=== PATIENT | male | born 1945 | race Caucasian/White ===

== ENCOUNTER → 2018-02-17 12:09 | Outpatient (CLI) | payer MEDICARE, SELFPAY ==
[2018-02-17 14:59] LABS: Absolute Lymphocyte Count 1.72 X10^3/ul (0.83-4.51); Absolute Neutrophil Count 3.5 X10^3/uL (2.0-7.7); Basophil# 0.04 X10^3/uL; Basophil% 0.7 % (0-1); Eosinophils% 1.6 % (0-5); Hemoglobin 16.8 g/dl (13.0-16.5); Lymphocyte # 1.72 X10^3/ul (4.0); Lymphocyte % 28.3 % (19-41); Mean Corpuscular Hgb 31.6 pg (27.0-32.0); Mean Corpuscular Volume 90.2 fL (80-94); Mean Platelet Vol. 10.7 fl (6.2-12.0); Monocyte# 0.73 X10^3/uL; Neutrophil # 3.46 X10^3/uL (2.7-7.7); Neutrophil % 57.1 % (47-70); Platelet Count 201 K/mm3 (150-450); RBC Distribution Width CV 12.3 % (11.6-14.6); RBC Distribution Width SD 40.8 fl (35.1-43.9); Red Blood Count 5.32 M/mm3 (4.6-6.2); White Blood Count 6.1 K/mm3 (4.4-11.0)
[2018-02-17 15:07] LABS: POSITIVE COUNT NO; POSITIVE DIFFERENTIAL NO; POSITIVE MORPHOLOGY NO
[2018-02-17 15:26] LABS: ALB/GLOB Ratio 1.1 RATIO (0.9-2.4); AST(SGOT) 21 U/L (15-37); Alanine Aminotransfer ALT/SGPT 28 U/L (16-61); Albumin, Serum 3.9 g/dL (3.2-5.0); Alkaline Phosphatase 85 U/L (45-117); Anion Gap 7 (5-15); BUN 17 mg/dL (7-18); BUN/Creat Ratio 15.6 RATIO (10-20); Calcium,Total 8.7 mg/dL (8.5-10.1); Chloride 103 mmol/L (98-107); Creatinine, Serum 1.09 mg/dL (0.70-1.30); EST Glomerular Filtration Rate 70 mL/min (>60); Est Glom Filt Rate - Afr Amer 85 mL/min (>60); Globulin 3.5 g/dL (2.2-4.2); Glucose 125 mg/dL (74-106); Potassium 3.8 mmol/L (3.5-5.1); Protein, Total 7.4 g/dL (6.4-8.2); Sodium Level 139 mmol/L (136-145); Thyroid Stim Hormone (TSH) 2.39 uIU/mL (0.358-3.74)
[2018-02-18 08:32] LABS: Vitamin D,25 Hydroxy 56.6 ng/mL (29.95-100.01)
== END ==
PROVIDERS: Family Provider Family Medicine Geriatric Medicine; PCP Family Medicine Geriatric Medicine; Visit Provider Family Medicine Geriatric Medicine
DX: E55.9 Vitamin D deficiency, unspecified (principal); I10 Essential (primary) hypertension
CPT/HCPCS: 36415; 80053; 82306; 84443; 85025

== ENCOUNTER → 2018-08-19 13:05 | Outpatient (CLI) | payer MEDICARE, SELFPAY ==
[2018-08-19 17:15] LABS: Absolute Lymphocyte Count 1.77 X10^3/ul (0.83-4.51); Absolute Neutrophil Count 3.3 X10^3/uL (2.0-7.7); Basophil# 0.03 X10^3/uL; Basophil% 0.5 % (0-1); Eosinophil# 0.08 X10^3/uL; Eosinophils% 1.4 % (0-5); Hematocrit 47.8 % (40-54); Hemoglobin 16.6 g/dl (13.0-16.5); Lymphocyte # 1.77 X10^3/ul (4.0); Lymphocyte % 30.9 % (19-41); Mean Corp Hgb Conc 34.7 g/gl (32-36); Mean Corpuscular Hgb 31.6 pg (27.0-32.0); Mean Platelet Vol. 10.9 fl (6.2-12.0); Monocyte# 0.58 X10^3/uL; Monocyte% 10.1 % (0-10); Neutrophil # 3.26 X10^3/uL (2.7-7.7); Neutrophil % 56.9 % (47-70); Platelet Count 186 K/mm3 (150-450); RBC Distribution Width CV 12.7 % (11.6-14.6); RBC Distribution Width SD 41.7 fl (35.1-43.9); Red Blood Count 5.25 M/mm3 (4.6-6.2); White Blood Count 5.7 K/mm3 (4.4-11.0)
[2018-08-19 17:24] LABS: POSITIVE COUNT NO; POSITIVE DIFFERENTIAL NO; POSITIVE MORPHOLOGY NO
[2018-08-19 17:26] LABS: Vitamin D,25 Hydroxy 39.1 ng/mL (29.95-100.01)
[2018-08-19 17:34] LABS: ALB/GLOB Ratio 1.1 RATIO (0.9-2.4); AST(SGOT) 18 U/L (15-37); Alanine Aminotransfer ALT/SGPT 33 U/L (16-61); Albumin, Serum 3.9 g/dL (3.2-5.0); Alkaline Phosphatase 80 U/L (45-117); Anion Gap 10 (5-15); BUN 17 mg/dL (7-18); BUN/Creat Ratio 14.5 RATIO (10-20); Calcium,Total 8.7 mg/dL (8.5-10.1); Chloride 106 mmol/L (98-107); Creatinine, Serum 1.17 mg/dL (0.70-1.30); EST Glomerular Filtration Rate 65 mL/min (>60); Est Glom Filt Rate - Afr Amer 78 mL/min (>60); Globulin 3.4 g/dL (2.2-4.2); Glucose 134 mg/dL (74-106); Potassium 3.6 mmol/L (3.5-5.1); Protein, Total 7.3 g/dL (6.4-8.2); Sodium Level 144 mmol/L (136-145)
== END ==
PROVIDERS: Family Provider Family Medicine Geriatric Medicine; PCP Family Medicine Geriatric Medicine; Visit Provider Family Medicine Geriatric Medicine
DX: E55.9 Vitamin D deficiency, unspecified (principal); I10 Essential (primary) hypertension
CPT/HCPCS: 36415; 80053; 82306; 84443; 85025

== ENCOUNTER → 2019-03-09 12:19 | Outpatient (CLI) | payer MEDICARE, SELFPAY ==
[2019-03-09 12:44] LABS: Absolute Lymphocyte Count 1.56 X10^3/ul (0.83-4.51); Basophil# 0.02 X10^3/uL; Basophil% 0.2 % (0-1); Eosinophil# 0.08 X10^3/uL; Lymphocyte # 1.56 X10^3/ul (4.0); Lymphocyte % 18.6 % (19-41); Mean Corpuscular Hgb 31.6 pg (27.0-32.0); Mean Corpuscular Volume 92.7 fL (80-94); Mean Platelet Vol. 10.6 fl (6.2-12.0); Monocyte# 0.76 X10^3/uL; Monocyte% 9.1 % (0-10); Neutrophil # 5.95 X10^3/uL (2.7-7.7); Platelet Count 187 K/mm3 (150-450); RBC Distribution Width CV 13.2 % (11.6-14.6); RBC Distribution Width SD 44.4 fl (35.1-43.9); Red Blood Count 5.07 M/mm3 (4.6-6.2); White Blood Count 8.4 K/mm3 (4.4-11.0)
[2019-03-09 12:52] LABS: POSITIVE COUNT NO; POSITIVE DIFFERENTIAL NO; POSITIVE MORPHOLOGY NO
[2019-03-09 12:59] LABS: Vitamin D,25 Hydroxy 25.4 ng/mL (29.95-100.01)
[2019-03-09 13:06] LABS: ALB/GLOB Ratio 1.2 RATIO (0.9-2.4); AST(SGOT) 17 U/L (15-37); Alanine Aminotransfer ALT/SGPT 22 U/L (16-61); Albumin, Serum 3.9 g/dL (3.2-5.0); Alkaline Phosphatase 72 U/L (45-117); Anion Gap 6 (5-15); BUN 13 mg/dL (7-18); BUN/Creat Ratio 11.9 RATIO (10-20); Calcium,Total 8.7 mg/dL (8.5-10.1); Chloride 104 mmol/L (98-107); Creatinine, Serum 1.09 mg/dL (0.70-1.30); EST Glomerular Filtration Rate 70 mL/min (>60); Est Glom Filt Rate - Afr Amer 85 mL/min (>60); Globulin 3.2 g/dL (2.2-4.2); Glucose 121 mg/dL (74-106); Potassium 3.6 mmol/L (3.5-5.1); Protein, Total 7.1 g/dL (6.4-8.2); Sodium Level 142 mmol/L (136-145)
== END ==
PROVIDERS: Family Provider Family Medicine Geriatric Medicine; PCP Family Medicine Geriatric Medicine; Visit Provider Family Medicine Geriatric Medicine
DX: E55.9 Vitamin D deficiency, unspecified (principal); I10 Essential (primary) hypertension
CPT/HCPCS: 36415; 80053; 82306; 84443; 85025

== ENCOUNTER → 2020-07-11 09:52 | Outpatient (CLI) | payer MEDICARE, SELFPAY ==
[2020-07-11 09:50] VITALS: BMI 27.3
--- NOTE | 2020-07-11 09:53 | RAD_ITS ---
STUDY: X-RAY - LUMBAR SPINE REASON FOR EXAM: Male, 74 years old. RECENT FALL, LBP TECHNIQUE: 5 view(s) of the lumbar spine were obtained. COMPARISON: None FINDINGS: Normal lumbar lordosis. There is no substantial scoliosis. There is a normal alignment of the vertebrae. There is multilevel endplate spondylosis of the lumbar vertebrae. Normal disc space heights. Facet joint osteoarthritis. There is atherosclerotic calcification of the abdominal aorta without a demonstrated aneurysm. Large amount of fecal material is seen in the colon. RAD/L/S Spine Min 4 Views IMPRESSION: Degenerative changes of the spine, as detailed above. Electronically Signed: David Higginbotham, at 10:19 EDT , Service support ,
== END ==
LOC: HPRAD 09:53
PROVIDERS: PCP Family Medicine Geriatric Medicine; Referring Provider Physician Assistant Surgical; Visit Provider Physician Assistant Surgical
DX: S39.012A Strain of muscle, fascia and tendon of lower back, initial encounter (principal)
CPT/HCPCS: 72110

== ENCOUNTER 2020-08-10 08:27 | Day surgery (SDC) | payer MEDICARE, SELFPAY ==
[2020-07-17 08:41] VITALS: BMI 27.3
--- NOTE | 2020-07-19 01:20 | HP_ITS ---
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 Is patient in pain?: Yes ([facility]) Allergies No Known Allergies Allergy (Verified 07/17/20 08:41) Medications Amlodipine/Valsartan [Exforge 5-320 MG Tablet] 1 tab PO DAILY 11/24/13 [History Confirmed 07/17/20] Aspirin [Aspirin, Baby] 81 mg PO DAILY@0800 11/24/13 [History Confirmed 07/17/20] Esomeprazole Mag Trihydrate [Nexium] 20 mg PO DAILY 11/24/13 [History Confirmed 07/17/20] Gabapentin [Neurontin] 300 mg PO BIDCM 11/24/13 [History Confirmed 07/17/20] [place]-3 Acid Ethyl Esters [Lovaza] 1 gm PO BID 11/24/13 [History Confirmed 07/17/20] buspirone 10 mg tablet mg PO 07/11/20 [History Confirmed 07/17/20] ergocalciferol (vitamin D2) 1,250 mcg (50,000 unit) capsule PO 07/11/20 [History Confirmed 07/17/20] losartan 100 mg tablet PO 07/11/20 [History Confirmed 07/17/20] pravastatin 80 mg tablet PO 07/11/20 [History Confirmed 07/17/20] PFSH Medical History Hypertension (Chronic) sudden weight loss (Acute) Hay fever (Acute) History of stroke (Acute) Difficulty balancing (Acute) Back pain (Acute) Dementia (Acute) Deaf (Acute) Bilateral inguinal hernia (Acute) Low back strain (Acute) Fatigue (Acute) Surgical History History of appendectomy (Acute) Social History (Updated 07/19/20 @ 13:[address] Franko Beatty MD) Smoking Status: Never smoker HPI HPI Surgical H&P: Yes HPI: MAREN DOBBINS, is a 74 M who presents to the office today for Evaluation of a hernia. Patient has been experiencing increasing pain greater on the right than on the left over the last 6 months. He cannot recall any traumas to the area. The pain is usually a 3 out of 10 but when he is coughing or doing heavy physical activity will go up to 5 and 6 out of 10. He has had no change in his bowel habits. Exam Const General: no acute distress, well developed, well hydrated Orientation: oriented to person, oriented to place, oriented to time [facility] Head: normocephalic, atraumatic Ears: external ears normal Mouth: moist mucous membranes Eyes Sclera: sclerae normal Pupils: normal by confrontation Neck Neck: no lymphadenopathy noted Neck mass: No Thyroid: thyroid normal, symmetrical Chest Chest palpation & inspection: normal inspection of the chest Resp Effort & Inspection: normal respiratory effort Auscultation: clear to auscultation bilaterally Percussion: percussion normal Cardio Rate: regular rate Rhythm: regular rhythm GI Palpation: soft, no hepatosplenomegaly, no masses, tender Rectal Exam: other Other: Patient has bilateral inguinal hernias on physical exam. Right side is greater than the left side both of them are reducible. Rectal exam deferred. Extrem General: normal to inspection, no clubbing, cyanosis or edema Assessment & Plan Problems 1. Non-recurrent bilateral inguinal hernia without obstruction or gangrene K40.20 Plan My plan is to perform a Robotic assisted laparoscopic hernia repair. The planned surgical procedure was discussed extensively with the patient. The risks, benefits, anticipated outcomes and possible complication were mentioned. The patient understands that all hernia repair surgery has a chance of recurrence and/or chronic post-operative pain. My staff has also explained the procedure in understandable terms and the patient was given the option to take printed material concerning the planned procedure. The patient had the opportunity to ask questions concerning the planned procedure. The patient freely consents to the planned procedure. Coding Level of Care Code Off vis,new,level 3 Diagnoses Non-recurrent bilateral inguinal hernia without obstruction or gangrene K40.20 ??Obstruction and gangrene presence: without obstruction or gangrene ??Recurrence: non-recurrent COVID (Procedure Consent) Procedure Criteria Procedure Criteria: Yes Elective The surgeon/proceduralist and patient have discussed in detail the risk of exposure to and/or potential harm posed by the COVID-19 virus with having a surgery/procedure at this time versus the risk of? delaying the surgery/procedure. It is not possible to know either the risk of delaying the surgery or procedure or chance of getting an infection with perfect accuracy, but a joint decision was made between the patient and the surgeon/proceduralist ?to proceed at this time with the scheduled surgery/procedure as indicated on the consent form. 07/19/20 1320 <Electronically signed by Franko soto MD> Date _ Franko Beatty MD I have re-examined the patient. There are no clinical changes since date of exam.
[2020-08-04 09:45] LABS: Hematocrit 46.6 % (40-54); Mean Corp Hgb Conc 34.3 g/dL (32-36); Mean Corpuscular Hgb 32.9 pg (27.0-32.0); Mean Corpuscular Volume 95.7 fL (80-94); Mean Platelet Vol. 10.5 fl (6.2-12.0); Platelet Count 191 K/mm3 (150-450); RBC Distribution Width CV 12.2 % (11.6-14.6); RBC Distribution Width SD 42.8 fl (35.1-43.9); Red Blood Count 4.87 M/mm3 (4.6-6.2); White Blood Count 5.7 K/mm3 (4.4-11.0)
[2020-08-04 10:25] LABS: Anion Gap 7 (5-15); BUN 24 mg/dL (7-18); BUN/Creat Ratio 20.3 RATIO (10-20); Calcium,Total 9.2 mg/dL (8.5-10.1); Chloride 104 mmol/L (98-107); Creatinine, Serum 1.18 mg/dL (0.70-1.30); EST Glomerular Filtration Rate 64 mL/min (>60); Est Glom Filt Rate - Afr Amer 77 mL/min (>60); Glucose 81 mg/dL (74-106); Potassium 3.8 mmol/L (3.5-5.1); Sodium Level 143 mmol/L (136-145)
[2020-08-10] VITALS (8 sets, daily range): BP systolic 144–151; BP diastolic 65–81; PULSE 52–71; RESP 14–18; TEMP 36.3–37; O2SAT 97–100; BMI 21.7
[2020-08-10] MEDS: Lactated Ringers 1,000 ML 100 ML IV ×2 (09:07→14:05)
[2020-08-10] MEDS: Cefazolin 2 GM in 0.9% Normal Saline 100 ML IV (10:36)
[2020-08-10] MEDS: Bupivacaine Mpf 0.5% 30 ML VIAL (13:00)
--- NOTE | 2020-08-10 13:22 | PCM.OPRPT ---
Problem List (1) Bilateral inguinal hernia Status: Acute Qualifiers: Obstruction and gangrene presence: without obstruction or gangrene Recurrence: non-recurrent Qualified Code(s): K40.20 - Bilateral inguinal hernia, without obstruction or gangrene, not specified as recurrent Report of Operation Date of Procedure: 08/10/20 Pre-Operative Diagnosis: Bilateral inguinal hernias Post-Operative Diagnosis: Same plus prostate irritation secondary to Cha catheter placement Surgery/Procedure Performed:: Robotically assisted laparoscopic bilateral inguinal hernia repair Type of Anesthesia:: General Anesthesiologist: Ernie Grayson Estimated Blood Loss (mL): < 25 cc Fluids Replaced: 1400 cc LR Description of Procedure: Patient was brought into the operating room. Placed in the supine position. Under excellent general trach elevation Cha catheter was placed by the nurses abdomen was sterilely prepped and draped in usual fashion. Local was injected supraumbilically dissection was carried down to the fascia the fascia grasped with a Katerina varies needle was placed inside the abdomen the abdomen was insufflated to 15 torr. #8 trocar was placed. This trocar was then flank by 2 other #8 trochars. There was no injury to underlying structures. Patient was placed in the headdown position. The robot was brought into position and docked with the trochars without difficulty. Pro-grasp was placed in the left hand scissors on the right hand. I started on the right side scored the peritoneum dissected down to Brant's ligament and dissected further laterally. Patient had a rather large defect on the side and as I started to dissect free the vessel structures and then come down and try to identify the vas deferens his hernia sac went all the way down to his testicle I brought it is much of it back and is possible but I thought that I was going to injure the blood supply so I subsequently transected the peritoneum and left part of the peritoneum go back and retract into the inguinal canal. Thought this was the best thing to do so I did not injure the blood supply to the testicle. I then went to the left side in similar fashion scored the peritoneum dissecting down to the pubic tubercle and Brant's ligament patient had a significant amount of his colon located within this hernia which I detached with the use of electrocautery without injury to the colon. I then dissected further laterally bringing the hernia sac off of the cord and vessel structures this side came off much easier. I dissected further laterally. I then placed 2 pro-electroencephalographic technologist mesh into the wound I unfolded them placing the right side first and then subsequently the left side both of these mesh laid completely flat. I then used 30V lock starting on the right side closing this right defect then going to the left side. There were 2 small defects located within the mesentery these were also subsequently closed with 3 OV lock. I had covered the mesh completely. It was during this part that I noticed that the bladder remained very full I asked if we had gotten any urine from the case and we had not. I subsequently have the balloon deflated no blood came back into the catheter. Skin incisions were closed with subcuticular stitches of 4-0 Monocryl. Steri-Strips were applied. I then personally remove the catheter attempted to place a 16 Tristanian catheter coud? tip but was unsuccessful. Blood did come back at the tip and I subsequently called Dr. Slater who came in and performed a flexible cystoscopy and placement of a Cha catheter. There was some bloody fluid in the leg bag. Dr. Wasserman said that the prostate looked slightly bruised and roughed up but there were no false channels and he anticipates this to heal completely. He wants me to send him home on some Flomax. Patient was sent to the recovery room in satisfactory condition I subsequently went spoke to the and explained the injury to the prostate and that he would be going home on a leg bag. I instructed her if there are any questions at all I was education sales consultant all weekend long and she could call me. I will see the patient back either Friday or Friday whichever works best for him and remove the catheter in the office. When in the PACU his urine did start to clear up. And I explained to him that his prostate was irritated with the Cha catheter and he needed to keep this catheter in until Friday. - Admit VTE Documentation VTE Present on Admission: No VTE Mechan Device Prophylaxis: SCD's VTE Pharm Prophylaxis ordered?: No Reason prophylaxis not ordered:: Treatment Not Indicated [id number]: [id number] Lap ing hernia repair init - Modifier 50
--- NOTE | 2020-08-10 13:30 | OP.PCM_ITS ---
Report of Operation Date of Procedure: 08/10/20 Pre-Operative Diagnosis: Unable to place Oden catheter patient undergoing surgery Post-Operative Diagnosis: Same Surgery/Procedure Performed:: Cystoscopy complicated Oden catheter placement. Description of Surgical Findings:: 74-year-old male was undergoing procedure he underwent a hernia repair. I was called down to place a Oden catheter at the end of the case he had a distended bladder the nursing staff attempted to place a catheter but were unable to so was called down to see the patient. Immediately came down as the patient was under anesthesia under the care of the general surgeon. He had completed his procedure the patient was supine on the table the penis testicles were prepped and draped in usual sterile fashion went in the bladder with a flexible cystoscope there was some blood along the course of the urethra went to the sphincter no clear false channel or abnormality was seen he did have an enlarged prostate was able to get through what appeared to be a high bladder neck and into a distended bladder put a wire through the catheter and then over a wire was able to place a 18 [place] tip catheter and then drained the bladder with urine with some blood in it. At this point appears to have some slight prosthetic trauma from attempted Oden placement and will think any thing serious, he can have the catheter removed in a few days probably would put him on Flomax just to help with swelling there is any issues I can see him postop. We then drained the bladder and patient is taken back to PACU in good condition. Type of Anesthesia:: General Drains: oden - Admit VTE Documentation VTE Present on Admission: No VTE Mechan Device Prophylaxis: SCD's
--- NOTE | 2020-08-10 13:53 | PCM.DC.HER ---
Discharge Diet: Light diet - advance as tolerated Discharge Activity: Return to Normal Activity, May Drive - when you are no longer taking narcotic pain medications., May Shower - with the bandage in place 1-2 days after surgery. Lifting Restrictions: 20 pounds for 8 weeks. Additional Activity Instructions:: Climbing stairs is fine, walking is encouraged. Sitting in bed may be uncomfortable. Sitting up using your lateral muscles (sitting up sideways) is usually more comfortable. Do not drive, work heavy equipment of sign legal documents for 24 hours. If your hernia repair was an ingunial repair, you may have scrotal swelling, an ice pack and/or athletic support can provide more comfort. Pain medications may cause nausea, you should typically eat light foods as you take your pain medications. Pain medications may also cause constipation. If you have difficulty with this, discuss with your doctor. Call your doctor if your incision/area has: Continuous Slow Oozing, Sudden Increased Bleeding, Increased Pain/ Swelling, Increased Redness, Foul Smelling Discharge Call your doctor if you observe: Fever of 101 or Higher Suture Line Care: Avoid Pulling/Pushing, Avoid Pinching/Bending Additional Dressing/Incision Instructions:: Leave the operative bandage on for 2-3 days. When you remove the bandage, leave the steri-strips on place until your follow up appointment or they fall off. Allergies/Adverse Reactions: Allergies No Known Allergies Allergy (Verified 08/01/20 14:21) Medications to take at Discharge Amlodipine/Valsartan [Exforge 5-320 MG Tablet] 1 tab PO QHS 11/24/13 Aspirin [Aspirin, Baby] 81 mg PO DAILY@0800 11/24/13 Esomeprazole Mag Trihydrate [Nexium] 20 mg PO DAILY 11/24/13 Gabapentin [Neurontin] 300 mg PO TID 11/24/13 [place]-3 Acid Ethyl Esters [Lovaza] 1 gm PO BID 11/24/13 buspirone 10 mg tablet 10 mg PO TID 07/11/20 ergocalciferol (vitamin D2) 1,250 mcg (50,000 unit) capsule 1,250 mcg PO DAILY 07/11/20 losartan 100 mg tablet 100 mg PO QHS 07/11/20 pravastatin 80 mg tablet 80 mg PO QHS 07/11/20 Oxycodone HCl/Acetaminophen [Percocet 5/325] 1 - 2 tab PO Q4H PRN PRN 6 Days #30 tab 08/10/20 Tamsulosin HCl [Flomax] 0.4 mg PO DAILY 7 Days #7 cap 08/10/20 The following prescriptions were given: Tamsulosin HCl [Flomax] 0.4 mg PO DAILY 7 Days #7 cap Transmission Status: Received by [facility] Oxycodone HCl/Acetaminophen [Percocet 5/325] 1 - 2 tab PO Q4H PRN PRN 6 Days #30 tab PRN Reason: Pain Transmission Status: Received by [facility] Orders to be completed after discharge: 12 Lead EKG [[facility]] Time Frame: 08/04/20, Facility: [facility], Location: Cardiovascular Services Primary Care Physician: Angel Kahn Chi, MD [Primary Care Provider] - Test Results: Test results from this visit will be discussed in further detail at your follow-up appointment, if applicable. Please Follow Up With: Franko Beatty MD - [phone] When: Plan to have a follow up appointment Friday or Friday.
--- NOTE | 2020-08-10 13:55 | PCM.DC.URO ---
Discharge Diet: Light diet - advance as tolerated Discharge Activity: Return to Normal Activity, May Drive - when you are no longer taking narcotic pain medications., May Shower - with the bandage in place 1-2 days after surgery. Additional Activity Instructions:: Climbing stairs is fine, walking is encouraged. Sitting in bed may be uncomfortable. Sitting up using your lateral muscles (sitting up sideways) is usually more comfortable. Do not drive, work heavy equipment of sign legal documents for 24 hours. If your hernia repair was an ingunial repair, you may have scrotal swelling, an ice pack and/or athletic support can provide more comfort. Pain medications may cause nausea, you should typically eat light foods as you take your pain medications. Pain medications may also cause constipation. If you have difficulty with this, discuss with your doctor. Call your doctor if your incision/area has: Continuous Slow Oozing, Sudden Increased Bleeding, Increased Pain/ Swelling, Increased Redness, Foul Smelling Discharge Call your doctor if you observe: Fever of 101 or Higher Suture Line Care: Avoid Pulling/Pushing, Avoid Pinching/Bending Catheter: Cha to leg bag - Please also give a large bag. Give instructions on how to change the two. Additional Dressing/Incision Instructions:: Leave the operative bandage on for 2-3 days. When you remove the bandage, leave the steri-strips on place until your follow up appointment or they fall off. Allergies/Adverse Reactions: Allergies No Known Allergies Allergy (Verified 08/01/20 14:21) Medications to take at Discharge Amlodipine/Valsartan [Exforge 5-320 MG Tablet] 1 tab PO QHS 11/24/13 Aspirin [Aspirin, Baby] 81 mg PO DAILY@0800 11/24/13 Esomeprazole Mag Trihydrate [Nexium] 20 mg PO DAILY 11/24/13 Gabapentin [Neurontin] 300 mg PO TID 11/24/13 [place]-3 Acid Ethyl Esters [Lovaza] 1 gm PO BID 11/24/13 buspirone 10 mg tablet 10 mg PO TID 07/11/20 ergocalciferol (vitamin D2) 1,250 mcg (50,000 unit) capsule 1,250 mcg PO DAILY 07/11/20 losartan 100 mg tablet 100 mg PO QHS 07/11/20 pravastatin 80 mg tablet 80 mg PO QHS 07/11/20 Oxycodone HCl/Acetaminophen [Percocet 5/325] 1 - 2 tab PO Q4H PRN PRN 6 Days #30 tab 08/10/20 Tamsulosin HCl [Flomax] 0.4 mg PO DAILY 7 Days #7 cap 08/10/20 The following prescriptions were given: Tamsulosin HCl [Flomax] 0.4 mg PO DAILY 7 Days #7 cap Transmission Status: Received by [facility] Oxycodone HCl/Acetaminophen [Percocet 5/325] 1 - 2 tab PO Q4H PRN PRN 6 Days #30 tab PRN Reason: Pain Transmission Status: Received by [facility] Orders to be completed after discharge: 12 Lead EKG [[facility]S] Time Frame: 08/04/20, Facility: [facility], Location: Cardiovascular Services Primary Care Physician: Angel Kahn Chi, MD [Primary Care Provider] - Test Results: Test results from this visit will be discussed in further detail at your follow-up appointment, if applicable.
== END 2020-08-10 15:50 | disposition home or self-care (01) ==
LOC: SDC 08:28 → AC 08:28
PROVIDERS: Anesthesiology; Urology; PCP Family Medicine Geriatric Medicine; Referring Provider Surgery; Visit Provider Surgery
PROC: (CPT 49650; principal; 2020-08-10 10:10)
PROC: 0TJB8ZZ Inspection of Bladder, Via Natural or Artificial Opening Endoscopic (ICD-10-PCS; CPT 52000; 2020-08-10 10:10)
DX: K40.20 Bilateral inguinal hernia, without obstruction or gangrene, not specified as recurrent (principal); E78.00 Pure hypercholesterolemia, unspecified; K21.9 Gastro-esophageal reflux disease without esophagitis; F41.9 Anxiety disorder, unspecified; F32.9 Major depressive disorder, single episode, unspecified; Z11.59 Encounter for screening for other viral diseases; Z79.899 Other long term (current) drug therapy; Z79.82 Long term (current) use of aspirin; I10 Essential (primary) hypertension; G47.30 Sleep apnea, unspecified
CPT/HCPCS: 00840; 49650; 51703; S2900; 36415; 80048; 85027; 87635; C9803; J7120; C1769; J2405; U0003

== ENCOUNTER → 2020-09-05 11:06 | Outpatient (CLI) | payer MEDICARE, SELFPAY ==
[2020-08-10 08:55] VITALS: BMI 21.7
[2020-09-05 12:32] LABS: Absolute Lymphocyte Count 1.07 X10^3/uL (0.83-4.51); Absolute Neutrophil Count 3.6 X10^3/uL (2.0-7.7); Basophil# 0.07 X10^3/uL; Basophil% 1.2 % (0-1); Eosinophil# 0.44 X10^3/uL; Eosinophils% 7.7 % (0-5); Hematocrit 42.7 % (40-54); Hemoglobin 14.1 g/dL (13.0-16.5); Lymphocyte # 1.07 X10^3/ul (4.0); Lymphocyte % 18.7 % (19-41); Mean Corpuscular Hgb 31.5 pg (27.0-32.0); Mean Corpuscular Volume 95.5 fL (80-94); Mean Platelet Vol. 10.4 fl (6.2-12.0); Monocyte# 0.56 X10^3/uL; Monocyte% 9.8 % (0-10); NRBC Flagged by Analyzer 0 % (0-5); Neutrophil # 3.57 X10^3/uL (2.7-7.7); Neutrophil % 62.3 % (47-70); Platelet Count 210 K/mm3 (150-450); RBC Distribution Width SD 42.3 fl (35.1-43.9); Red Blood Count 4.47 M/mm3 (4.6-6.2); White Blood Count 5.7 K/mm3 (4.4-11.0)
[2020-09-05 13:00] LABS: AST(SGOT) 18 U/L (15-37); Alanine Aminotransfer ALT/SGPT 24 U/L (16-61); Albumin, Serum 3.5 g/dL (3.2-5.0); Alkaline Phosphatase 81 U/L (45-117); Anion Gap 4 (5-15); BUN 14 mg/dL (7-18); Calcium,Total 9.1 mg/dL (8.5-10.1); Chloride 106 mmol/L (98-107); Creatinine, Serum 0.93 mg/dL (0.70-1.30); EST Glomerular Filtration Rate 84 mL/min (>60); Est Glom Filt Rate - Afr Amer 101 mL/min (>60); Globulin 3.6 g/dL (2.2-4.2); Glucose 95 mg/dL (74-106); Potassium 3.4 mmol/L (3.5-5.1); Protein, Total 7.1 g/dL (6.4-8.2); Sodium Level 142 mmol/L (136-145); Thyroid Stim Hormone (TSH) 1.34 uIU/mL (0.358-3.74); Vitamin D,25 Hydroxy 41.1 ng/mL
== END ==
PROVIDERS: PCP Family Medicine Geriatric Medicine; Visit Provider Family Medicine Geriatric Medicine
DX: E55.9 Vitamin D deficiency, unspecified (principal); I10 Essential (primary) hypertension
CPT/HCPCS: 36415; 80053; 82306; 84443; 85025

== ENCOUNTER → 2021-03-16 11:08 | Outpatient (CLI) | payer MEDICARE, SELFPAY ==
[2020-08-10 08:55] VITALS: BMI 21.7
[2021-03-16 12:17] LABS: Absolute Lymphocyte Count 1.34 X10^3/uL (0.83-4.51); Absolute Neutrophil Count 2.7 X10^3/uL (2.0-7.7); Basophil# 0.06 X10^3/uL; Basophil% 1.3 % (0-1); Eosinophils% 2.1 % (0-5); Hematocrit 42.9 % (40-54); Hemoglobin 14.3 g/dL (13.0-16.5); Lymphocyte # 1.34 X10^3/ul (0.83-4.51); Lymphocyte % 28.5 % (19-41); Mean Corp Hgb Conc 33.3 g/dL (32-36); Mean Corpuscular Volume 92.9 fL (80-94); Mean Platelet Vol. 10.6 fl (6.2-12.0); Monocyte# 0.48 X10^3/uL; Monocyte% 10.2 % (0-10); NRBC Flagged by Analyzer 0 % (0-5); Neutrophil # 2.72 X10^3/uL (2.7-7.7); Neutrophil % 57.7 % (47-70); Platelet Count 200 K/mm3 (150-450); RBC Distribution Width CV 11.9 % (11.6-14.6); Red Blood Count 4.62 M/mm3 (4.6-6.2); White Blood Count 4.7 K/mm3 (4.4-11.0)
[2021-03-16 12:31] LABS: Vitamin D,25 Hydroxy 43.1 ng/mL
[2021-03-16 12:45] LABS: ALB/GLOB Ratio 1.1 RATIO (0.9-2.4); AST(SGOT) 16 U/L (15-37); Alanine Aminotransfer ALT/SGPT 19 U/L (16-61); Albumin, Serum 3.8 g/dL (3.2-5.0); Alkaline Phosphatase 75 U/L (45-117); Anion Gap 3 (5-15); BUN 21 mg/dL (7-18); BUN/Creat Ratio 19.8 RATIO (10-20); Calcium,Total 8.8 mg/dL (8.5-10.1); Chloride 106 mmol/L (98-107); Creatinine, Serum 1.06 mg/dL (0.70-1.30); EST Glomerular Filtration Rate 72 mL/min (>60); Est Glom Filt Rate - Afr Amer 87 mL/min (>60); Globulin 3.5 g/dL (2.2-4.2); Glucose 100 mg/dL (74-106); Potassium 3.5 mmol/L (3.5-5.1); Protein, Total 7.3 g/dL (6.4-8.2); Sodium Level 141 mmol/L (136-145); Thyroid Stim Hormone (TSH) 1.37 uIU/mL (0.358-3.74)
== END ==
PROVIDERS: PCP Family Medicine Geriatric Medicine; Visit Provider Family Medicine Geriatric Medicine
DX: E55.9 Vitamin D deficiency, unspecified (principal); E87.6 Hypokalemia; I10 Essential (primary) hypertension
CPT/HCPCS: 36415; 80053; 82306; 84443; 85025

== ENCOUNTER → 2021-09-18 15:57 | Outpatient (CLI) | payer MEDICARE, SELFPAY ==
[2021-09-18 16:38] LABS: Absolute Lymphocyte Count 1.02 X10^3/uL (0.83-4.51); Absolute Neutrophil Count 4.7 X10^3/uL (2.0-7.7); Basophil# 0.04 X10^3/uL; Basophil% 0.6 % (0-1); Eosinophil# 0.05 X10^3/uL; Eosinophils% 0.8 % (0-5); Hematocrit 43.3 % (40-54); Hemoglobin 14.6 g/dL (13.0-16.5); Lymphocyte # 1.02 X10^3/ul (0.83-4.51); Lymphocyte % 15.5 % (19-41); Mean Corp Hgb Conc 33.7 g/dL (32-36); Mean Corpuscular Hgb 31.8 pg (27.0-32.0); Mean Corpuscular Volume 94.3 fL (80-94); Mean Platelet Vol. 10.5 fl (6.2-12.0); Monocyte% 10.7 % (0-10); NRBC Flagged by Analyzer 0 % (0-5); Neutrophil # 4.72 X10^3/uL (2.7-7.7); Neutrophil % 71.9 % (47-70); Platelet Count 199 K/mm3 (150-450); RBC Distribution Width CV 12.1 % (11.6-14.6); RBC Distribution Width SD 42.3 fl (35.1-43.9); Red Blood Count 4.59 M/mm3 (4.6-6.2); White Blood Count 6.6 K/mm3 (4.4-11.0)
[2021-09-18 17:09] LABS: ALB/GLOB Ratio 1.1 RATIO (0.9-2.4); AST(SGOT) 14 U/L (15-37); Alanine Aminotransfer ALT/SGPT 19 U/L (16-61); Albumin, Serum 3.8 g/dL (3.2-5.0); Alkaline Phosphatase 67 U/L (45-117); Anion Gap 4 (5-15); BUN 22 mg/dL (7-18); BUN/Creat Ratio 18.3 RATIO (10-20); Calcium,Total 8.7 mg/dL (8.5-10.1); Chloride 104 mmol/L (98-107); EST Glomerular Filtration Rate 62 mL/min (>60); Est Glom Filt Rate - Afr Amer 75 mL/min (>60); Globulin 3.5 g/dL (2.2-4.2); Glucose 88 mg/dL (74-106); Potassium 3.9 mmol/L (3.5-5.1); Protein, Total 7.3 g/dL (6.4-8.2); Sodium Level 140 mmol/L (136-145)
== END ==
PROVIDERS: PCP Family Medicine Geriatric Medicine; Visit Provider Family Medicine Geriatric Medicine
DX: E55.9 Vitamin D deficiency, unspecified (principal); I10 Essential (primary) hypertension
CPT/HCPCS: 36415; 80053; 82306; 84443; 85025

== ENCOUNTER → 2022-09-23 | Outpatient (CLI) | payer MEDICARE, SELFPAY ==
[2022-09-23 17:57] LABS: Absolute Lymphocyte Count 1.32 X10^3/uL (0.83-4.51); Absolute Neutrophil Count 3.7 X10^3/uL (2.0-7.7); Basophil# 0.05 X10^3/uL; Basophil% 0.9 % (0-1); Eosinophils% 1.8 % (0-5); Hematocrit 45.1 % (40-54); Hemoglobin 15.6 g/dL (13.0-16.5); Lymphocyte # 1.32 X10^3/ul (0.83-4.51); Lymphocyte % 23.2 % (19-41); Mean Corp Hgb Conc 34.6 g/dL (32-36); Mean Corpuscular Volume 92.4 fL (80-94); Mean Platelet Vol. 10.8 fl (6.2-12.0); Monocyte# 0.54 X10^3/uL; Monocyte% 9.5 % (0-10); NRBC Flagged by Analyzer 0 % (0-5); Neutrophil # 3.67 X10^3/uL (2.7-7.7); Neutrophil % 64.2 % (47-70); Platelet Count 199 K/mm3 (150-450); RBC Distribution Width CV 11.9 % (11.6-14.6); RBC Distribution Width SD 40.5 fl (35.1-43.9); Red Blood Count 4.88 M/mm3 (4.6-6.2); White Blood Count 5.7 K/mm3 (4.4-11.0)
[2022-09-23 18:04] LABS: Vitamin D,25 Hydroxy 46.1 ng/mL
[2022-09-23 18:18] LABS: ALB/GLOB Ratio 1.2 RATIO (0.9-2.4); AST(SGOT) 16 U/L (15-37); Alanine Aminotransfer ALT/SGPT 23 U/L (16-61); Alkaline Phosphatase 77 U/L (45-117); Anion Gap 4 (5-15); BUN 19 mg/dL (7-18); BUN/Creat Ratio 16.8 RATIO (10-20); Calcium,Total 8.8 mg/dL (8.5-10.1); Chloride 107 mmol/L (98-107); Creatinine, Serum 1.13 mg/dL (0.70-1.30); EST Glomerular Filtration Rate 67 mL/min (>60); Est Glom Filt Rate - Afr Amer 81 mL/min (>60); Globulin 3.3 g/dL (2.2-4.2); Glucose 96 mg/dL (74-106); Potassium 3.4 mmol/L (3.5-5.1); Protein, Total 7.3 g/dL (6.4-8.2); Sodium Level 141 mmol/L (136-145); Thyroid Stim Hormone (TSH) 2.55 uIU/mL (0.358-3.74)
== END | disposition home or self-care (01) ==
LOC: POLAB3 15:38
PROVIDERS: PCP Family Medicine Geriatric Medicine; Visit Provider Family Medicine Geriatric Medicine
DX: E55.9 Vitamin D deficiency, unspecified (principal); I10 Essential (primary) hypertension
CPT/HCPCS: 36415; 80053; 82306; 84443; 85025

== ENCOUNTER → 2023-09-24 | Outpatient (CLI) | payer MEDICARE, SELFPAY ==
[2023-09-24 16:18] LABS: Absolute Lymphocyte Count 0.83 X10^3/uL (0.83-4.51); Absolute Neutrophil Count 4.3 X10^3/uL (2.0-7.7); Basophil# 0.02 X10^3/uL; Basophil% 0.4 % (0-1); Eosinophil# 0.04 X10^3/uL; Eosinophils% 0.7 % (0-5); Hematocrit 42.6 % (40-54); Hemoglobin 14.5 g/dL (13.0-16.5); Lymphocyte # 0.83 X10^3/ul (0.83-4.51); Lymphocyte % 15.1 % (19-41); Mean Corpuscular Hgb 31.9 pg (27.0-32.0); Mean Corpuscular Volume 93.8 fL (80-94); Mean Platelet Vol. 10.5 fl (6.2-12.0); Monocyte# 0.33 X10^3/uL; NRBC Flagged by Analyzer 0 % (0-5); Neutrophil # 4.25 X10^3/uL (2.7-7.7); Neutrophil % 77.4 % (47-70); Platelet Count 203 K/mm3 (150-450); RBC Distribution Width CV 12.2 % (11.6-14.6); RBC Distribution Width SD 42.6 fl (35.1-43.9); Red Blood Count 4.54 M/mm3 (4.6-6.2); White Blood Count 5.5 K/mm3 (4.4-11.0)
[2023-09-24 16:36] LABS: Vitamin D,25 Hydroxy 60.6 ng/mL
[2023-09-24 16:46] LABS: AST(SGOT) 11 U/L (15-37); Alanine Aminotransfer ALT/SGPT 20 U/L (16-61); Albumin, Serum 3.6 g/dL (3.2-5.0); Alkaline Phosphatase 62 U/L (45-117); Anion Gap 5 (5-15); BUN 14 mg/dL (7-18); Calcium,Total 8.7 mg/dL (8.5-10.1); Chloride 105 mmol/L (98-107); EST Glomerular Filtration Rate 77 mL/min (>60); Est Glom Filt Rate - Afr Amer 93 mL/min (>60); Globulin 3.5 g/dL (2.2-4.2); Glucose 97 mg/dL (74-106); Potassium 3.7 mmol/L (3.5-5.1); Protein, Total 7.1 g/dL (6.4-8.2); Sodium Level 139 mmol/L (136-145); Thyroid Stim Hormone (TSH) 0.87 uIU/mL (0.358-3.74)
== END | disposition home or self-care (01) ==
LOC: POLAB3 15:08
PROVIDERS: PCP Family Medicine Geriatric Medicine; Visit Provider Family Medicine Geriatric Medicine
DX: I10 Essential (primary) hypertension (principal); E55.9 Vitamin D deficiency, unspecified
CPT/HCPCS: 36415; 80053; 82306; 84443; 85025

== ENCOUNTER → 2024-10-12 | Outpatient (CLI) | payer MEDICARE, SELFPAY ==
[2024-10-12 12:59] LABS: Absolute Lymphocyte Count 1.11 X10^3/uL (0.83-4.51); Absolute Neutrophil Count 3.9 X10^3/uL (2.0-7.7); Basophil# 0.06 X10^3/uL; Eosinophil# 0.06 X10^3/uL; Hematocrit 46.6 % (40-54); Hemoglobin 15.7 g/dL (13.0-16.5); Lymphocyte # 1.11 X10^3/ul (0.83-4.51); Lymphocyte % 19.3 % (19-41); Mean Corp Hgb Conc 33.7 g/dL (32-36); Mean Corpuscular Hgb 31.5 pg (27.0-32.0); Mean Corpuscular Volume 93.4 fL (80-94); Mean Platelet Vol. 10.5 fl (6.2-12.0); Monocyte# 0.59 X10^3/uL; Monocyte% 10.2 % (0-10); NRBC Flagged by Analyzer 0 % (0-5); Neutrophil # 3.92 X10^3/uL (2.7-7.7); Neutrophil % 68.2 % (47-70); Platelet Count 210 K/mm3 (150-450); RBC Distribution Width SD 41.3 fl (35.1-43.9); Red Blood Count 4.99 M/mm3 (4.6-6.2); White Blood Count 5.8 K/mm3 (4.4-11.0)
[2024-10-12 13:26] LABS: Vitamin D,25 Hydroxy 47.2 ng/mL
[2024-10-12 13:40] LABS: ALB/GLOB Ratio 1.2 RATIO (0.9-2.4); AST(SGOT) 20 U/L (15-37); Alanine Aminotransfer ALT/SGPT 19 U/L (16-61); Albumin, Serum 4.3 g/dL (3.2-5.0); Alkaline Phosphatase 72 U/L (45-117); Anion Gap 3 (5-15); BUN 19 mg/dL (7-18); Calcium,Total 9.3 mg/dL (8.5-10.1); Chloride 110 mmol/L (98-107); Creatinine, Serum 1.19 mg/dL (0.70-1.30); EST Glomerular Filtration Rate 62 mL/min (>60); Est Glom Filt Rate - Afr Amer 76 mL/min (>60); Globulin 3.5 g/dL (2.2-4.2); Glucose 113 mg/dL (74-106); Potassium 3.7 mmol/L (3.5-5.1); Protein, Total 7.8 g/dL (6.4-8.2); Sodium Level 142 mmol/L (136-145)
== END | disposition home or self-care (01) ==
LOC: POLAB3 12:47
PROVIDERS: PCP Family Medicine Geriatric Medicine; Visit Provider Family Medicine Geriatric Medicine
DX: I10 Essential (primary) hypertension (principal); E55.9 Vitamin D deficiency, unspecified
CPT/HCPCS: 36415; 80053; 82306; 84443; 85025

== ENCOUNTER 2025-07-29 14:09 | Emergency (ER) | payer MEDICARE, SELFPAY ==
[2025-07-29] VITALS (7 sets, daily range): BP systolic 122–158; BP diastolic 60–95; PULSE 71–100; RESP 16–31; TEMP 36.2–37.1; O2SAT 92–99; BMI 20.7
--- NOTE | 2025-07-29 14:10 | EKG12_ITS ---
Test Reason : UNRESPONSIVE Blood Pressure : */* mmHG Vent. Rate : 95 BPM Atrial Rate : 97 BPM P-R Int : 156 ms QRS Dur : 114 ms QT Int : 402 ms P-R-T Axes : 75 -52 198 degrees QTcB Int : 505 ms nsr with frequent PVC's Left axis deviation Left ventricular hypertrophy with repolarization abnormality ( [place] product ) Cannot rule out Septal infarct , age undetermined Prolonged QT Abnormal ECG Confirmed by Carlos Desai ([id number]), commissioning editor JANELLE EDMONDSON ([id number]) on 08/01/2025 1:10:54 PM Referred By: LELE Confirmed By: Carlos Desai
--- NOTE | 2025-07-29 14:19 | EX.ED.CRITCA ---
HPI History of Present Illness Chief Complaint: Alt LOC Detail of Chief Complaint: Altered mental status from baseline Informant: EMS Onset/Context/Timing Onset: - (Apparently became agitated at 0300. There was incontinence of stool during the night.) Context: Sudden Onset Timing: Continuous Quality: Combative, not directable which is unusual for patient Location: Presents from home Mechanism/Context: Yes other Current Severity: Moderate Maximum Severity: Severe Worsened by: Hypoglycemia Relieved by: He received partial infusion of D10 with some slight improvement per EMS Narrative Narrative: Patient is a 75-year-old male. He has a history of dementia. He is not normally verbal. He is directable and understands things. He has been incontinent of urine and does wear a depends diaper. No other history is available at this time. CODE STATUS is in question. Prior similar symptoms: No Recent Illness/Hospitalization: No PFSH PFSH Medical History (Updated 07/29/25 @ 16:[address] Mario Richards MD) [place] (hard of hearing) Speech impairment Illiterate Dementia Stroke Home Medications ?Medication ?Instructions ?Recorded ?Last Taken ?Type amlodipine 5 mg tablet 5 mg PO DAILY 07/29/25 Unknown History buspirone 10 mg tablet 10 mg PO TID 07/29/25 Unknown History cholecalciferol (vitamin D3) 25 25 mcg PO DAILY 07/29/25 Unknown History mcg (1,000 unit) tablet gabapentin 300 mg capsule 300 mg PO TID 07/29/25 Unknown History losartan 100 mg tablet 100 mg PO DAILY 07/29/25 Unknown History omeprazole 40 mg capsule,delayed 40 mg PO DAILY 07/29/25 Unknown History release pravastatin 80 mg tablet 80 mg PO DAILY 07/29/25 Unknown History quetiapine 25 mg tablet 25 mg PO BID 07/29/25 Unknown History sulfamethoxazole 800 1 tab PO BID #14 TABLETS 07/29/25 Unknown Rx mg-trimethoprim 160 mg tablet Allergy/AdvReac Type Severity Reaction Status Date / Time No Known Allergies Allergy Verified 07/29/25 14:28 Surgical History (Updated 07/29/25 @ 14:33 by Kirsten Graham) H/O hernia repair Hx of cholecystectomy Social History (Updated 07/29/25 @ 14:[address] Mario Richards MD) household members: spouse and family Smoking Status: Former smoker ROS ROS ED Review of Systems ROS Unobtainable: due to mental status EXAM Physical Exam Const Vital Signs: 07/29/25 14:10 07/29/25 14:12 07/29/25 14:30 Temperature 97.2 F L Temperature Source Axillary Pulse Rate 84 100 84 Respiratory Rate 20 H 29 H 27 H Blood Pressure 151/95 H 151/95 H 158/80 H Blood Pressure Mean 113 113 106 Pulse Ox 94 95 Oxygen Delivery Method Room Air 07/29/25 15:39 07/29/25 16:30 Temperature Temperature Source Pulse Rate 88 71 Respiratory Rate 31 H 24 H Blood Pressure 122/62 H 137/68 H Blood Pressure Mean 82 91 Pulse Ox 92 92 Oxygen Delivery Method Room Air Positive well nourished and well developed Constitutional Narrative: Nondirectable. Blood pressure is elevated. General Appearance ED: well developed and pallor HEENT normocephalic and atraumatic; Negative for cyanosis of lips/distal nose Eyes PERRL and EOMs intact bilaterally General Eye ED: Negative for pale conjunctiva or scleral icterus Neck full ROM Chest Wall Chest Narrative: Chest wall appears normal. Resp Resp Narrative: Breath sounds are symmetric and clear. Cardio regular rate and no murmurs Cardio Narrative: Patient is noted to have ectopy on auscultation. There are these are noted to be premature ventricular beats on the monitor GI non-tender, non-distended and no masses Back/Spine Back/Spine Narrative: None reliable back exam Extremity Extremity Narrative: Patient's legs and feet are covered with stool. There is no obvious skin breakdown. Neuro No oriented x3 and CN's II-XII intact bilaterally Neuro Narrative: He has good strength and moves all extremities. Unable to test for dysmetria. He has bilateral Babinski sign. Sensorium / Orientation: Negative for alert, oriented to person, oriented to place or oriented to time Speech: Negative for speech normal Gait (Neuro): Negative for normal gait Psych Attitude: agitated Skin General Skin Exam: pallor; Negative for jaundice Lesions: no lesions Rashes: no rashes MDM MDM MDM Narrative Medical decision making narrative: Blood sugar is now 47. D50 was ordered. If he remains combative to facilitate imaging will administer sedating medication to achieve studies testing needed. Differential diagnosis is insulinoma since he does not have a history of diabetes, adrenal pathology, poor p.o. intake and lack of glycogen stores, infectious process his altered mental status most likely is due to this however with a broad lateral Babinski signs will obtain CT of the head. Lab Data Attestation: I reviewed the patient's lab results. Lab results narrative: White count slightly elevated 12.8. H&H and indices are normal. There is a slight shift with 89% segs. Lactate elevated 2.1. Electrolyte panel is unremarkable. Cortisol level is elevated which 1 would expect since she was under stress. Urinalysis dip is cloudy straw-colored with protein, glucose, occult blood, nitrites and leukoesterase. Will send culture and placed on short course of antibiotics. Labs: Laboratory Results - last 24 hr 07/29/25 07/29/25 07/29/25 14:25 14:30 14:35 WBC 12.8 H RBC 4.73 Hgb 15.4 Hct 44.2 MCV 93.4 MCH 32.6 H MCHC 34.8 RDW Std Deviation 43.1 RDW Coeff of Christianne 12.5 Plt Count 227 MPV 10.4 Immature Gran % (Auto) 0.300 Neut % (Auto) 89.7 H Lymph % (Auto) 4.9 L [place] % (Auto) 4.9 Eos % (Auto) 0.0 Baso % (Auto) 0.2 Absolute Neuts (auto) 11.5 H Absolute Lymphs (auto) 0.62 L Nucleated RBC % 0 Sodium 140 Potassium 4.1 Chloride 103 Carbon Dioxide 24.9 Anion Gap 12 BUN 17 Creatinine 1.10 Estim Creat Clear Calc 48.79 L Est GFR (MDRD) Non-Af 69 BUN/Creatinine Ratio 15.2 Glucose 76 Lactic Acid 2.1 H* Calcium 9.6 Total Bilirubin 1.27 AST 36 ALT 22 Alkaline Phosphatase 82 Total Protein 7.6 Albumin 4.4 Globulin 3.1 Albumin/Globulin Ratio 1.4 Cortisol PM Sample 34.80 H Urine Color Straw Urine Clarity Cloudy Urine pH 6.0 Ur Specific [place] 1.020 Urine Protein 100 H Urine Glucose (UA) 250 H Urine Ketones Negative Urine Occult Blood 50 H Urine Nitrite Positive H Urine Bilirubin Negative Urine Urobilinogen Normal Ur Leukocyte Esterase 100 H POC Glucose 07/29/25 14:38 WBC RBC Hgb Hct MCV MCH MCHC RDW Std Deviation RDW Coeff of Christianne Plt Count MPV Immature Gran % (Auto) Neut % (Auto) Lymph % (Auto) [place] % (Auto) Eos % (Auto) Baso % (Auto) Absolute Neuts (auto) Absolute Lymphs (auto) Nucleated RBC % Sodium Potassium Chloride Carbon Dioxide Anion Gap BUN Creatinine Estim Creat Clear Calc Est GFR (MDRD) Non-Af BUN/Creatinine Ratio Glucose Lactic Acid Calcium Total Bilirubin AST ALT Alkaline Phosphatase Total Protein Albumin Globulin Albumin/Globulin Ratio Cortisol PM Sample Urine Color Urine Clarity Urine pH Ur Specific [place] Urine Protein Urine Glucose (UA) Urine Ketones Urine Occult Blood Urine Nitrite Urine Bilirubin Urine Urobilinogen Ur Leukocyte Esterase POC Glucose 172 H Radiography Chest X-Ray - ED: 2 View (Thoracic spine was entirely reviewed interpreted by me as negative for any acute process. Does have some degenerative changes.) and Read by ED Physician (Three-view x-ray of the LS-spine reveals degenerative changes with spondylolisthesis. There is no evidence of fracture. There is no other acute abnormality noted.) Diagnostic Testing: Clinical Impression(s) from Imaging Studies Brain CT 07/29/25 14:50 IMPRESSION: CHRONIC CHANGES. NO ACUTE FINDINGS. Reading Location: [facility] Thoracic Spine X-Ray 07/29/25 15:28 IMPRESSION: No acute osseous abnormality seen. Reading Location: [facility] Lumbar Spine X-Ray 07/29/25 15:45 IMPRESSION: 1. No acute osseous abnormality. 2. Spondylosis and degenerative disc disease. Reading Location: [facility] EKG Initial EKG: Attestation: I personally reviewed and interpreted this EKG as follows: Interpretation: Sinus Rhythm (Suboptimal due to lack of cooperation's. It appears to be a sinus rhythm. His axis to the left. There are frequent premature ventricular beats. There is evidence of LVH. He does have an intraventricular conduction delay. QTc is prolonged as well. In light of this we will not treat nausea or v) Treatment and Re-Evaluation Narrative: Since patient is urine does have nitrites leukoesterase and blood and he is nonverbal and unable to determine if he does or does not have urinary symptoms we will send culture and treat with Bactrim. Discharge Plan Triage Chief Complaint: Alt LOC ED Provider: Mario Richards Dx/Rx/DC Orders Clinical Impression: Hypoglycemia, Acute UTI, Dementia, Deafness Instructions: ED LOW BLOOD SUGAR, Non Diabetic, ED Bladder Infection, Male (Adult) Prescriptions: New sulfamethoxazole-trimethoprim 800-160 mg tablet 1 tab PO BID Qty: 14 0RF No Action quetiapine 25 mg tablet 25 mg PO BID Rx Instructions: tab half tab 12.5 at 0900; take 1 tab at 1500 amlodipine 5 mg tablet 5 mg PO DAILY omeprazole 40 mg capsule,delayed release(DR/EC) 40 mg PO DAILY pravastatin 80 mg tablet 80 mg PO DAILY buspirone 10 mg tablet 10 mg PO TID gabapentin 300 mg capsule 300 mg PO TID losartan 100 mg tablet 100 mg PO DAILY cholecalciferol (vitamin D3) 25 mcg (1,000 unit) tablet 25 mcg PO DAILY Primary Care Provider: Angel Kahn Chi Referrals: Angel Kahn Chi, MD [Primary Care Provider] - 3-5 Days if not improving Care Physician,No Primary [Non-Staff] - Print Language: Kyrgyz Disposition Disposition: Home, Self Care
[2025-07-29 14:36] LABS: Hematocrit 44.2 % (40-54); Hemoglobin 15.4 g/dL (13.0-16.5); Immature Granulocytes Count 0.040 X10^3/uL (0.0-0.0); Mean Corp Hgb Conc 34.8 g/dL (32-36); Mean Corpuscular Volume 93.4 fL (80-94); Mean Platelet Vol. 10.4 fl (6.2-12.0); NRBC Flagged by Analyzer 0 % (0-5); Platelet Count 227 K/mm3 (150-450); RBC Distribution Width CV 12.5 % (11.6-14.6); RBC Distribution Width SD 43.1 fl (35.1-43.9); Red Blood Count 4.73 M/mm3 (4.6-6.2); White Blood Count 12.8 K/mm3 (4.4-11.0)
--- NOTE | 2025-07-29 14:50 | CT_ITS ---
PROCEDURE: BRAIN/HEAD WITHOUT CONTRAST 07/29/2025 REASON FOR EXAM: ACUTE ALTERED MENTAL STATUS TECHNIQUE: Procedure Code: CTBR Modality: CT Procedure: BRAIN/HEAD WITHOUT CONTRAST Coronal and Sagittal reconstruction series were provided. One or more dose reduction techniques were used (e.g., Automated exposure control, adjustment of the mA and/or kV according to patient size, use of iterative reconstruction technique. RADIATION DOSE SUMMARY: CTDlvol: 44.99 mGy DLP: 796.11 mGycm COMPARISON: None FINDINGS: Brain: Low density in the periventricular white matter suggests mild chronic small vessel ischemic changes. CSF Spaces: Moderate generalized cerebral atrophy. Atherosclerotic calcification of the cavernous portions of the internal carotid arteries. Sinuses/Mastoids: There is opacification of the left maxillary sinus. Bones: No fracture. CT/Brain/Head without Contrast IMPRESSION: CHRONIC CHANGES. NO ACUTE FINDINGS. Reading Location: [id number]
[2025-07-29 14:57] LABS: Mucous, Urine 0 SEEN /hpf (<or=2+); Squamous Epithelial Cells - UA 0 SEEN /hpf (0-5)
[2025-07-29 14:59] LABS: AST(SGOT) 36 U/L (<=37); Alanine Aminotransfer ALT/SGPT 22 U/L (<=46); Albumin, Serum 4.4 g/dL (3.4-4.8); Alkaline Phosphatase 82 U/L (40-129); Anion Gap 12 (5-15); BUN 17 mg/dL (4-19); BUN/Creat Ratio 15.2 RATIO (10-20); Calcium,Total 9.6 mg/dL (7.6-11.0); Carbon Dioxide 24.9 mmol/L (21.0-32.0); Chloride 103 mmol/L (98-108); Estimated Creatinine Clearance 48.79 ml/min (50-250); Globulin 3.1 g/dL (2.2-4.2); Glucose 76 mg/dL (70-99); Potassium 4.1 mmol/L (3.3-5.1)
--- NOTE | 2025-07-29 15:28 | RAD_ITS ---
PROCEDURE: THORACIC SPINE 2 VIEWS 07/29/2025 REASON FOR EXAM: INJURY/PAIN TECHNIQUE: Procedure Code: RADSPT2 Modality: DX Procedure: THORACIC SPINE 2 VIEWS COMPARISON: None. FINDINGS: BONES: No fracture or focal osseous lesion. Anatomic spinal alignment. DISC/DEGENERATIVE CHANGES: Disc space narrowing and vertebral endplate osteophytes at multiple levels. SOFT TISSUES: No acute abnormality seen. RAD/Thoracic Spine 2 Views IMPRESSION: No acute osseous abnormality seen. Reading Location: [id number]
--- NOTE | 2025-07-29 15:31 | CHAPLAIN ---
Type of Pastoral Visit _x__ Initial Visit ___ Follow-up Visit ___ On-call Visit ___ General Patient Visit ___ Spiritual Assessment ___ Family Conference ___ Bereavement ___ Rapid Response ___ Code Blue ___ Other (describe below) Pastoral Care Referral From ___ Patient ___ Family ___ Nurse ___ Physician _x__ Concrete Mixer Operator ___ Wrecking Mechanic _x__ Other (describe below) Sacrament/Intervention _x__ Active listening ___ Anointing ___ Temple ___ Bereavement ___ Communion ___ Mervat exploration ___ ___ Life review ___ Prayer ___ Reconciliation ___ Sacrament of Sick _x__ Supportive presence ___ Wedding ___ Other (describe below) Pastoral Comments was in the ED on rounding when the squad called in to announce they were bringing in the patient who was unresponsive; was present when patient arrived; waited for family members to arrive and when they did offered support and escorted family into room; offered beverages or ongoing support as needed but family declined at this time; pt was speaking better and more alert at this time
--- NOTE | 2025-07-29 15:45 | RAD_ITS ---
PROCEDURE: LUMBAR SPINE 2 OR 3 VIEWS 07/29/2025 REASON FOR EXAM: INJURY/PAIN TECHNIQUE: Procedure Code: RADSPLL Modality: DX Procedure: LUMBAR SPINE 2 OR 3 VIEWS COMPARISON: None. FINDINGS: BONES: Five [id number] lumbar vertebral bodies. No fracture or focal osseous lesion. Anatomic spinal alignment. DISC/DEGENERATIVE CHANGES: Vertebral endplate osteophytes and mild disc space narrowing throughout. L4-L5 and L5-S1 facet arthropathy. SOFT TISSUES: Calcified aorta and iliac arteries. RAD/Lumbar Spine 2 or 3 Views IMPRESSION: 1. No acute osseous abnormality. 2. Spondylosis and degenerative disc disease. Reading Location: [id number]
[2025-07-29 15:58] LABS: Color, Urine Straw (Yellow); Glucose, Dipstick 250 mg/dl (Normal); Ketone-Dipstick Negative (Negative); Leukocyte Esterase-Dipstick 100 /ul (Negative); Nitrite-Dipstick Positive (Negative); Occult Blood-Urine 50 /ul (Negative); Protein-Dipstick 100 mg/dl (Negative); Specific Gravity, Urine 1.020 (1.002-1.030); Urine Bilirubin Dipstick Negative (Negative)
[2025-07-29 16:03] LABS: CORTISOL PM 34.80 ug/dL (2.68-10.50)
[2025-07-29 17:35] LABS: Red Blood Cells-Urine 0-5 SEEN /hpf (0-5)
[2025-07-29 18:33] LABS: Reflex Lactate? Y
== END 2025-07-29 17:43 | disposition home or self-care (01) ==
PROVIDERS: Emergency Provider Emergency Medicine; PCP Family Medicine Geriatric Medicine; Visit Provider Emergency Medicine
DX: E16.2 Hypoglycemia, unspecified (principal); F03.90 Unspecified dementia, unspecified severity, without behavioral disturbance, psychotic disturbance, mood disturbance, and anxiety; N39.0 Urinary tract infection, site not specified; R32 Unspecified urinary incontinence; H91.90 Unspecified hearing loss, unspecified ear; I49.3 Ventricular premature depolarization; M43.17 Spondylolisthesis, lumbosacral region; Z86.73 Personal history of transient ischemic attack (TIA), and cerebral infarction without residual deficits; Z79.899 Other long term (current) drug therapy; Z87.891 Personal history of nicotine dependence
CPT/HCPCS: 70450; 72070; 72100; 80053; 81001; 82533; 82962; 83605; 85025; 87077; 87086; 87088; 87186; 93005; 96374; 96375; 96376; 99285; A4216; J2405